=== PATIENT | male | born 1955 | race Caucasian/White ===

== ENCOUNTER 2016-04-28 08:28 | Emergency (ER) | payer BC ==
[~2016-04-28] VITALS: Ht 190.5 cm; Wt 95.3 kg
[2016-04-28] MEDS ORDERED: OXYMETAZOLINE HCL NASAL SPRAY 30 ML BOTTLE NS ONE ×2 (08:30→08:31)
[2016-04-28 09:09] VITALS: BP 129/80
== END 2016-04-28 09:09 | disposition home or self-care (01) ==
LOC: ER 08:29
DX: R04.0 Epistaxis (principal); E78.5 Hyperlipidemia, unspecified
CPT/HCPCS: 30901; 99284; A4606; Z7610